=== PATIENT | male | born 1980 | race Caucasian/White ===

== ENCOUNTER → 2021-10-14 | Outpatient (CLI) | payer OTHER | LOC: M WHC 15:17 | DX: R92.2 Inconclusive mammogram (principal); N63.24 Unspecified lump in the left breast, lower inner quadrant ==

== ENCOUNTER → 2022-06-10 | Outpatient (CLI) | payer OTHER | LOC: M WHC 12:35 | PROVIDERS: ATTEND Plastic Surgery Surgery of the Hand | DX: N62 Hypertrophy of breast (principal) | CPT/HCPCS: 77066; G0279 ==

== ENCOUNTER 2023-03-12 09:11 | Day surgery (SDC) | payer OTHER ==
[~2023-03-12] VITALS: Ht 172.7 cm; Wt 87.8 kg
[~2023-03-12 09:11] MED LIST: LIDOCAINE 2% 100MG/5ML SDV (FOR ANES.) As Ordered ONE; MIDAZOLAM INJ 2MG/2ML VIAL As Ordered ONE; ONDANSETRON 4MG 2ML VIAL As Ordered ONE; ceFAZolin SOD 2 GM in IV 1 EA IV ONE; fentaNYL 250 MCG/5 ML INJECTION As Ordered ONE; propofoL 200 MG/20 ML VIAL As Ordered ONE
[2023-03-12] MEDS ORDERED: LIDOCAINE 1% MDV 20ML VIAL As Ordered ONE (09:38)
[2023-03-12] MEDS ORDERED: EPINEPHrine INJ 1 MG/ML 1ML AMP As Ordered ONE (09:39)
[2023-03-12] MEDS ORDERED: GENTAMICIN SULF 80MG/2ML VIAL As Ordered ONE (09:39)
[2023-03-12] MEDS ORDERED: LR 1,000 ML IV SCH ×2 (09:55→12:15)
[2023-03-12] MEDS ORDERED: ACETAMINOPHEN 1000MG 100ML IV BAG As Ordered ONE (10:30)
[2023-03-12] MEDS ORDERED: ePHEDrine SULFATE 25 MG/5 ML(5MG/ML) SYRINGE As Ordered ONE (10:32)
[2023-03-12] MEDS ORDERED: dexmedeTOMIDine (4MCG/ML)200MCG/50ML BTL (PRECEDEX) As Ordered ONE (10:48)
[2023-03-12] MEDS ORDERED: propofoL 200 MG/20 ML VIAL As Ordered ONE (11:34)
[2023-03-12] MEDS ORDERED: SEVOFLURANE INHAL SOLN 250 ML BTL As Ordered ONE (11:50)
[2023-03-12] MEDS ORDERED: ONDANSETRON 4MG 2ML VIAL IV PRN (12:15)
[2023-03-12] MEDS ORDERED: oxyCODONE 5MG TAB PO PRN (12:15)
[2023-03-12] MEDS ORDERED: fentaNYL 100 MCG/2 ML INJECTION IV PRN (12:15)
[2023-03-12] MEDS ORDERED: OXYC1TAB23 PO (12:42)
[2023-03-12 13:40] VITALS: BP 139/83; TEMP 97.7; O2SAT 95
== END 2023-03-12 14:05 | disposition home or self-care (01) ==
LOC: M SDC 09:11
PROVIDERS: ATTEND Plastic Surgery Surgery of the Hand
DX: N62 Hypertrophy of breast (principal); Z87.891 Personal history of nicotine dependence
CPT/HCPCS: 19300; 88300; 88307; C9290; J0131; J0171; J0665; J0690; J1100; J1580; J2250; J2405; J3010